=== PATIENT | female | born 1965 | race Caucasian/White ===

== ENCOUNTER 2018-08-31 21:27 | Inpatient (IN) | payer MEDICAID ==
[~2018-08-31] VITALS: Ht 162.6 cm; Wt 62.5 kg
[~2018-08-31 21:27] MED LIST: ALBU18HF; ALBU8.5H8 INH; AMOX1TAB12 PO; AMOX1TAB64 PO; CLOP75TA52; ENAL20TA PO; LISI-167; METF-162 PO; METF500T17 PO; METO-93 PO; OMEP-110 PO; SERT100T PO; SIMV20TA3 PO
--- NOTE | 2018-08-31 21:46 | NUR ---
PT HERE FOR CHEST PAIN THAT STARTED APPROX 45 MIN AGO. PAIN IS LEFT SIDED AND NON RADIATING. PAIN IS 7/10 AND CAUSES NAUSEA AND SOB. VSS. PIV ATTEMPTED BUT NOT SUCCESSSFUL. WILL MEDICATE WHEN PIV PLACED. LAB AT BEDSIDE. CALL LIGHT IN REACH
[2018-08-31] MEDS ORDERED: MORPHINE SULFATE 4 MG/ML, 1ML IVPush PRN (22:00)
[2018-08-31] MEDS ORDERED: ONDANSETRON 2MG/ML, 2ML IVPush ONE (22:00)
[2018-08-31] MEDS ORDERED: SODIUM CHLORIDE FLUSH 10ML SYR IVF ONE (22:00)
[2018-08-31 22:52] LABS: ALBUMIN 2.9 g/dL (3.4-5.0); ANION GAP 13 mmol/L (5-15); CALCIUM 8.7 mg/dL (8.5-10.1); CHLORIDE 108 mmol/L (98-107)
[2018-08-31] MEDS ORDERED: ONDANSETRON 2MG/ML, 2ML ONE (22:52)
[2018-08-31] MEDS ORDERED: MORPHINE SULFATE 4 MG/ML, 1ML ONE (22:52)
[2018-08-31 22:55] LABS: ALANINE AMINOTRANSFERASE 33 U/L (12-78); ALKALINE PHOSPHATASE 165 U/L (45-117); BILIRUBIN,TOTAL 0.3 mg/dL (0.2-1.0); CREATININE 1.34 mg/dL (0.55-1.02); TOTAL PROTEIN 6.4 g/dL (6.4-8.2); TROPONIN I < 0.015 ng/mL (0.000-0.045)
[2018-08-31] MEDS ORDERED: CLOP75TA52 PO (23:01)
--- NOTE | 2018-08-31 23:01 | NUR ---
PT MEDICATED FOR PAIN. PT PLACED ON O2 TO MAINTAIN SATS. CALL LIGHT IN REACH
[2018-08-31 23:20] LABS: MEAN CORPUSCULAR HEMOGLOBIN 31.1 pg (27.0-34.8); MEAN CORPUSCULAR HGB CONC 32.4 g/dL (32.4-35.8); MEAN CORPUSCULAR VOLUME 95.9 fL (80-100); PLATELET COUNT 228 x10^3/uL (130-400); RED BLOOD COUNT 3.62 x10^6/uL (3.82-5.3); RED CELL DISTRIBUTION WIDTH 23.9 % (9.6-15.2)
[2018-08-31 23:33] LABS: D-DIMER 0.26 ug/mlFEU (0.00-0.52); INTERNATIONAL NORMALIZED RATIO 0.97 (0.93-1.1); PROTHROMBIN TIME 10.2 Seconds (9.6-11.5)
[2018-08-31 23:48] LABS: BASOPHILS # (AUTO) 0.02 x10^3/uL (0-0.1); BASOPHILS % (AUTO) 0 % (0-1); EOSINOPHILS # (AUTO) 0.13 x10^3/uL (0-0.4); EOSINOPHILS % (AUTO) 2 % (1-7); LYMPHOCYTES # (AUTO) 0.72 x10^3/uL (1-3.4); LYMPHOCYTES % (AUTO) 11 % (22-44); MD SCAN; MONOCYTES # (AUTO) 0.55 x10^3/uL (0.2-0.8); MONOCYTES % (AUTO) 8 % (2-9); NEUTROPHILS # (AUTO) 5.25 x10^3/uL (1.8-6.8); NEUTROPHILS % (AUTO) 79 % (42-75)
[2018-09-01] VITALS (9 sets, daily range): BP systolic 107–121; BP diastolic 73–85
[2018-09-01] MEDS ORDERED: ONDANSETRON ODT 4 MG PO PRN
[2018-09-01] MEDS ORDERED: POLYETHYLENE GLYCOL 17 GM PACKET PO PRN
[2018-09-01] MEDS ORDERED: NITROGLYCERIN 0.4 MG BOTTLE (25 TABS) SL PRN
[2018-09-01] MEDS ORDERED: BISACODYL 10 MG SUPP PR PRN
[2018-09-01] MEDS ORDERED: ACETAMINOPHEN 325 MG TABLET PO PRN
--- NOTE | 2018-09-01 00:15 | NUR ---
REPORT TO TREASURE HERNANDEZ.
[2018-09-01 00:22] LABS: HEMOGLOBIN A1C 6.5 % (4.2-6.3)
[2018-09-01] MEDS ORDERED: NICOTINE 21 MG/24 HR PATCH.TD24 ONE (00:37)
[2018-09-01] MEDS: metFORMIN 500 MG TABLET PO SCH ×3 (00:43→20:47)
[2018-09-01] MEDS: NICOTINE 21 MG/24 HR PATCH.TD24 TD SCH (00:43)
[2018-09-01] MEDS: HEPARIN 5,000 UNITS/ML, 1ML SQ SCH ×3 (00:43→16:11)
[2018-09-01] MEDS: SIMVASTATIN 20 MG TABLET PO SCH ×2 (00:43→20:47)
[2018-09-01] MEDS: METOPROLOL SUCCINATE 50 MG TAB.ER.24H PO SCH ×3 (00:44→20:47)
[2018-09-01] MEDS: SODIUM CHLORIDE FLUSH 10ML SYR IVF SCH ×3 (00:44→20:47)
[2018-09-01] MEDS: ALBUTEROL SULFATE 2.5 MG/3 ML NPPB SCH ×4 (02:01→21:11)
[2018-09-01] MEDS: morphine SULFATE 10 MG/ML, 1ML IVPush PRN ×4 (04:41→20:46)
[2018-09-01 05:25] LABS: MEAN CORPUSCULAR HEMOGLOBIN 29.4 pg (27.0-34.8); MEAN CORPUSCULAR HGB CONC 30.6 g/dL (32.4-35.8); MEAN CORPUSCULAR VOLUME 96.2 fL (80-100); MEAN PLATELET VOLUME 6.7 fL (7.4-10.4); PLATELET COUNT 221 x10^3/uL (130-400); RED BLOOD COUNT 3.37 x10^6/uL (3.82-5.3)
[2018-09-01 05:55] LABS: BASOPHILS # (AUTO) 0.03 x10^3/uL (0-0.1); BASOPHILS % (AUTO) 1 % (0-1); EOSINOPHILS # (AUTO) 0.07 x10^3/uL (0-0.4); EOSINOPHILS % (AUTO) 1 % (1-7); LYMPHOCYTES # (AUTO) 0.77 x10^3/uL (1-3.4); LYMPHOCYTES % (AUTO) 15 % (22-44); MD SCAN; MONOCYTES # (AUTO) 0.49 x10^3/uL (0.2-0.8); MONOCYTES % (AUTO) 10 % (2-9); NEUTROPHILS # (AUTO) 3.79 x10^3/uL (1.8-6.8); NEUTROPHILS % (AUTO) 74 % (42-75)
[2018-09-01 05:59] LABS: ALBUMIN 2.1 g/dL (3.4-5.0); ANION GAP 8 mmol/L (5-15); CALCIUM 8.3 mg/dL (8.5-10.1); CHLORIDE 111 mmol/L (98-107)
[2018-09-01 06:06] LABS: ALANINE AMINOTRANSFERASE 25 U/L (12-78); ALKALINE PHOSPHATASE 126 U/L (45-117); BILIRUBIN,TOTAL 0.5 mg/dL (0.2-1.0); CHOL/HDL RATIO 2.3; CHOLESTEROL, TOTAL 140 mg/dL (140-239); CREATININE 1.06 mg/dL (0.55-1.02); HDL CHOL % 43 % (28-40); HDL CHOLESTEROL (DIRECT) 60 mg/dL (40-60); LDL CHOLESTEROL,CALCULATED 41 mg/dL (54-169); LDL/HDL RATIO 0.7 (0.5-3.0); TOTAL PROTEIN 5.2 g/dL (6.4-8.2); TRIGLYCERIDES 193 mg/dL (50-200); TROPONIN I 0.016 ng/mL (0.000-0.045); VLDL CHOLESTEROL 39 mg/dL (0-25)
[2018-09-01] MEDS ORDERED: POTASSIUM CHLORIDE 20 MEQ TAB.ER.PRT PO ONE (08:00)
[2018-09-01] MEDS ORDERED: REGADENOSON 0.4 MG/5 ML SYRINGE ONE (08:04)
[2018-09-01] MEDS: ENALAPRIL 20MG TABLET PO SCH (08:26)
[2018-09-01] MEDS: SERTRALINE 100MG TABLET PO SCH (08:26)
[2018-09-01] MEDS: CLOPIDOGREL 75 MG TABLET PO SCH (08:26)
[2018-09-01] MEDS: SENNA/DOCUSATE TABLET PO SCH (08:27)
[2018-09-01 11:22] LABS: TROPONIN I < 0.015 ng/mL (0.000-0.045)
[2018-09-02] MEDS: NICOTINE 21 MG/24 HR PATCH.TD24 TD SCH (00:17)
[2018-09-02] MEDS: HEPARIN 5,000 UNITS/ML, 1ML SQ SCH ×2 (00:18→09:01)
[2018-09-02 00:24] VITALS: BP 126/87
[2018-09-02] MEDS: morphine SULFATE 10 MG/ML, 1ML IVPush PRN (01:36)
[2018-09-02] MEDS: ALBUTEROL SULFATE 2.5 MG/3 ML NPPB SCH ×2 (03:00→08:05)
[2018-09-02 08:41] VITALS: BP 114/78
[2018-09-02] MEDS: SODIUM CHLORIDE FLUSH 10ML SYR IVF SCH (09:00)
[2018-09-02] MEDS ORDERED: methylPREDNISolone SOD SUCC 125 MG/2 ML IVPush SCH (09:00)
[2018-09-02] MEDS: CLOPIDOGREL 75 MG TABLET PO SCH (09:00)
[2018-09-02] MEDS: SERTRALINE 100MG TABLET PO SCH (09:00)
[2018-09-02] MEDS: metFORMIN 500 MG TABLET PO SCH (09:00)
[2018-09-02] MEDS: METOPROLOL SUCCINATE 50 MG TAB.ER.24H PO SCH (09:00)
[2018-09-02] MEDS: SENNA/DOCUSATE TABLET PO SCH (09:00)
[2018-09-02] MEDS: ENALAPRIL 20MG TABLET PO SCH (09:00)
--- NOTE | 2018-09-02 10:42 | NUR ---
Recommend diet of pureed solids and thin liquids with adherence to the following strategies: HOB at 90* Alternate liquids and solids Check for right-sided pocketing Cough with wet vocal quality Straws okay [place] swallow precautions sign posted in patient's room. Addendum: 09/02/18 at 1055 by Izabela MOORE Amended: Links added.
[2018-09-02] MEDS ORDERED: GUAIFENESIN 200 MG TABLET PO SCH (11:00)
== END 2018-09-02 11:33 | disposition left against medical advice (07) | DRG 189 ==
LOC: ED 22:52 → EDIP 23:32 → 5SO 09-01 00:28
PROVIDERS: ADMIT Family Medicine; ATTEND Family Medicine
DX: J96.01 Acute respiratory failure with hypoxia (principal); E43 Unspecified severe protein-calorie malnutrition; J44.1 Chronic obstructive pulmonary disease with (acute) exacerbation; I25.10 Atherosclerotic heart disease of native coronary artery without angina pectoris; Z88.6 Allergy status to analgesic agent; Z88.2 Allergy status to sulfonamides; D64.9 Anemia, unspecified; E11.9 Type 2 diabetes mellitus without complications; Z68.23 Body mass index [BMI] 23.0-23.9, adult; E78.5 Hyperlipidemia, unspecified; F17.200 Nicotine dependence, unspecified, uncomplicated; F32.9 Major depressive disorder, single episode, unspecified; I10 Essential (primary) hypertension; I25.2 Old myocardial infarction; K21.9 Gastro-esophageal reflux disease without esophagitis; Z79.02 Long term (current) use of antithrombotics/antiplatelets; Z85.41 Personal history of malignant neoplasm of cervix uteri; Z85.44 Personal history of malignant neoplasm of other female genital organs; Z90.710 Acquired absence of both cervix and uterus; Z95.5 Presence of coronary angioplasty implant and graft; Z53.21 Procedure and treatment not carried out due to patient leaving prior to being seen by health care provider
CPT/HCPCS: 36415; J7613; 71045; 78452; 80053; 80061; 83036; 83880; 84484; 85025; 85379; 85610; 85730; 93005; 93017; 96374; 96375; G0378; J1644; J2405; J2785; Q0162; A9502; C9898; J2270; J2930

== ENCOUNTER 2018-09-05 18:11 | Emergency (ER) | payer MEDICAID ==
[~2018-09-05] VITALS: Ht 162.6 cm; Wt 60.0 kg
[~2018-09-05 18:11] MED LIST changes: +CLOP75TA52 PO
--- NOTE | 2018-09-05 18:15 | NUR ---
BIB [facility] FROM HOME W/ CO SUDDEN ONSET 'STABBING' CHEST PAIN BELOW L BREAST. ONSET WHILE SEATED/RELAXING. PAIN IS NON-RADIATING AND TENDER TO PALPATION. +DIZZINESS. NO IMPROVEMENT WITH NITRO SL X1 SPORTS MEDICINE COORDINATOR. 324 MG ASA SPORTS MEDICINE COORDINATOR PT REPORTS RECENT N/D. ADMITTED TO [facility] LAST WEDNESDAY FOR CP DC'D WEDNESDAY. HX HTN, NV W/ STENT PLACEMENT, AND COPD. DENIES RESPIRATORY COMPLAINTS BP/SPO2/ECG MONITORING IN PLACE. NSR ON MONITOR
[2018-09-05 18:25] VITALS: BP 110/80
[2018-09-05] MEDS ORDERED: MAALOX/HYOSCYAMINE/LIDOCAINE 45 ML BTL PO ONE (18:30)
[2018-09-05] MEDS ORDERED: ONDANSETRON ODT 4 MG PO ONE (18:30)
[2018-09-05] MEDS ORDERED: ACETAMINOPHEN 500 MG TABLET PO ONE (18:30)
[2018-09-05] MEDS ORDERED: MAALOX/HYOSCYAMINE/LIDOCAINE 45 ML BTL ONE (18:34)
[2018-09-05] MEDS ORDERED: ACETAMINOPHEN 500 MG TABLET ONE (18:34)
[2018-09-05] MEDS ORDERED: ONDANSETRON ODT 4 MG ONE (18:34)
--- NOTE | 2018-09-05 18:43 | NUR ---
PT MEDICATED PER EMAR. RAD AT BEDSIDE.
--- NOTE | 2018-09-05 19:00 | NUR ---
REPORT TO DAVID VALERIO.
[2018-09-05 19:06] LABS: BASOPHILS # (AUTO) 0.05 x10^3/uL (0-0.1); BASOPHILS % (AUTO) 1 % (0-1); EOSINOPHILS # (AUTO) 0.04 x10^3/uL (0-0.4); EOSINOPHILS % (AUTO) 1 % (1-7); LYMPHOCYTES % (AUTO) 13 % (22-44); MD MORPH REVIEW ONLY; MEAN CORPUSCULAR HEMOGLOBIN 31.2 pg (27.0-34.8); MEAN CORPUSCULAR HGB CONC 32.5 g/dL (32.4-35.8); MEAN CORPUSCULAR VOLUME 95.9 fL (80-100); MEAN PLATELET VOLUME 7.1 fL (7.4-10.4); MONOCYTES # (AUTO) 0.41 x10^3/uL (0.2-0.8); MONOCYTES % (AUTO) 7 % (2-9); NEUTROPHILS # (AUTO) 4.44 x10^3/uL (1.8-6.8); NEUTROPHILS % (AUTO) 79 % (42-75); PLATELET COUNT 255 x10^3/uL (130-400); RED BLOOD COUNT 3.87 x10^6/uL (3.82-5.3); RED CELL DISTRIBUTION WIDTH 22.9 % (9.6-15.2)
[2018-09-05 19:13] LABS: ALANINE AMINOTRANSFERASE 19 U/L (12-78); ALBUMIN 2.7 g/dL (3.4-5.0); ANION GAP 9 mmol/L (5-15); CALCIUM 8.8 mg/dL (8.5-10.1); CHLORIDE 109 mmol/L (98-107); CREATININE 1.22 mg/dL (0.55-1.02); INTERNATIONAL NORMALIZED RATIO 0.97 (0.93-1.1); PROTHROMBIN TIME 10.2 Seconds (9.6-11.5)
[2018-09-05 19:18] LABS: ALKALINE PHOSPHATASE 143 U/L (45-117); BILIRUBIN,TOTAL 0.4 mg/dL (0.2-1.0); TOTAL PROTEIN 6.3 g/dL (6.4-8.2); TROPONIN I < 0.015 ng/mL (0.000-0.045)
[2018-09-05 19:41] LABS: ANISOCYTOSIS 1+; POLYCHROMASIA 1+
[2018-09-05 19:42] LABS: <PLATELET ESTIMATE> ADEQUATE; <PLT MORPHOLOGY> NORMAL PLT MORPH; OVALOCYTES 1+
--- NOTE | 2018-09-05 20:25 | NUR ---
Pt in room requesting recheck, pt educated her chart is up for recheck and MD will be in to go over plan of care. Pt states "just take this IV out of me, I want to leave" IV removed, pt encouraged to wait for recheck. Pt currently remains in room waiting for MD.
--- NOTE | 2018-09-05 20:42 | NUR ---
Pt appears to have eloped, wrist band on bed, all belongings are gone. notfied.
== END 2018-09-05 20:44 | disposition left against medical advice (07) ==
LOC: ED 20:38
DX: R07.9 Chest pain, unspecified (principal); J44.9 Chronic obstructive pulmonary disease, unspecified; E11.22 Type 2 diabetes mellitus with diabetic chronic kidney disease; I13.10 Hypertensive heart and chronic kidney disease without heart failure, with stage 1 through stage 4 chronic kidney disease, or unspecified chronic kidney disease; N18.9 Chronic kidney disease, unspecified; E78.5 Hyperlipidemia, unspecified; I25.2 Old myocardial infarction; Z90.49 Acquired absence of other specified parts of digestive tract; Z90.710 Acquired absence of both cervix and uterus; F17.200 Nicotine dependence, unspecified, uncomplicated
CPT/HCPCS: 36415; 71045; 80053; 83690; 84484; 85025; 85610; 85730; 99284; Q0162